=== PATIENT | female | born 1970 | race Two or more races ===

== ENCOUNTER 2016-12-07 07:25 | Day surgery (SDC) | payer MEDICAID ==
[2016-12-04 14:10] VITALS: BMI 25.2
[2016-12-07] VITALS (17 sets, daily range): BP systolic 105–118; BP diastolic 55–72; PULSE 56–90; RESP 14–19; Ht 152.4 cm; Wt 71.0 kg
[~2016-12-07] VITALS: Ht 152.4 cm; Wt 71.0 kg
[~2016-12-07 07:25] MED LIST: PREN1TAB49 PO
[2016-12-07 09:53] LABS: ADD SCAN DIFF NO
[2016-12-07] MEDS ORDERED: SOD CHLORIDE 0.9% 1,000 ML IV SCH (10:00)
[2016-12-07] MEDS ORDERED: CEFAZOLIN 2 GM/50 ML (PMX) 50 ML IVPB SCH (10:00)
[2016-12-07 10:08] LABS: BASOPHILS % 0.7 % (0.0-2.0); EOSINOPHILS # 0.2 10^3/ul (0.0-0.5); EOSINOPHILS % 5.7 % (0.0-7.0); HEMATOCRIT 33.7 % (37.0-47.0); HEMOGLOBIN 10.8 g/dl (12.0-16.0); LYMPHOCYTES # 1.3 10^3/ul (0.8-2.9); LYMPHOCYTES % 45.9 % (15.0-51.0); MEAN CORPUSCULAR HEMOGLOBIN 29.7 pg (29.0-33.0); MEAN CORPUSCULAR VOLUME 92.6 fl (82.0-101.0); MEAN PLATELET VOLUME 9.9 fl (7.4-10.4); MONOCYTE # 0.3 10^3/ul (0.3-0.9); NEUTROPHILS % 36.7 % (39.0-77.0); PLATELET COUNT 314 10^3/UL (140-415); RED BLOOD COUNT 3.64 10^6/ul (4.20-5.40); WHITE BLOOD COUNT 2.8 10^3/ul (4.8-10.8)
[2016-12-07 10:15] LABS: INR 1.02; PROTIME 13.4 Sec (12.2-14.2)
[2016-12-07 10:16] LABS: CREATININE 0.48 mg/dl (0.44-1.00); PARTIAL THROMBOPLASTIN TIME 31.5 Sec (25.0-35.0); POTASSIUM 3.6 mmol/L (3.5-5.1)
[2016-12-07 10:17] LABS: CALCIUM 8.9 mg/dl (8.4-10.2)
[2016-12-07] MEDS ORDERED: PROPOFOL 100 ML ONE (10:52)
[2016-12-07] MEDS ORDERED: LIDOCAINE 2% (SDV) 5 ML INJ ONE (10:54)
[2016-12-07] MEDS ORDERED: CEFAZOLIN 1 GM INJ ONE (11:12)
[2016-12-07] MEDS ORDERED: ONDANSETRON 4 MG INJ ONE (11:23)
[2016-12-07] MEDS ORDERED: DEXAMETHASONE 4 MG/ML 1 ML INJ ONE (11:23)
[2016-12-07] MEDS ORDERED: EPHEDrine SULFATE 50 MG/5 ML SYG IV PRN (11:30)
[2016-12-07] MEDS ORDERED: METOCLOPRAMIDE 10 MG INJ IV PRN (11:30)
[2016-12-07] MEDS ORDERED: HYDROmorphONE (0.2 MG/ML) 10ML SYG IV PRN ×2 (11:30)
[2016-12-07] MEDS ORDERED: hydrALAzine 20 MG INJ IV PRN (11:30)
[2016-12-07] MEDS ORDERED: MEPERIDINE 25 MG INJ IV PRN (11:30)
[2016-12-07] MEDS ORDERED: FENTAnyl 50 MCG/ML VIAL IV PRN ×3 (11:30)
[2016-12-07] MEDS ORDERED: LABETALOL HCL 20MG INJ IV PRN (11:30)
[2016-12-07] MEDS ORDERED: ONDANSETRON 4 MG INJ IV PRN ×2 (11:30→12:30)
[2016-12-07] MEDS ORDERED: DIPHENHYDRAMINE 50 MG INJ IV PRN (11:30)
[2016-12-07] MEDS ORDERED: D5W-0.45 NACL + KCL 20 MEQ 1,000 ML IV SCH (12:12)
[2016-12-07] MEDS ORDERED: ACETAMINOPHEN 1000MG/100ML IV 100 ML IVPB PRN (12:30)
[2016-12-07] MEDS ORDERED: morphine 2 MG INJ IV PRN (12:30)
[2016-12-07] MEDS: HYDROmorphONE (0.2 MG/ML) 10ML SYG IV PRN ×2 (12:51→12:59)
--- NOTE | 2016-12-07 14:49 | OPR ---
DATE OF OPERATION: 12/07/2016 PREOPERATIVE DIAGNOSIS: Locally advanced right breast cancer. POSTOPERATIVE DIAGNOSIS: Locally advanced right breast cancer. OPERATION PERFORMED: Right modified radical mastectomy. ANESTHESIA: General. ANESTHESIOLOGIST: Dr. Drew SURGEON: Bertram Lemon MD CRADLE SLIDE MAKER: Dr. Laurent INDICATIONS FOR PROCEDURE: The patient is an unfortunate 46-year-old female who was diagnosed with a locally advanced right breast cancer. She had a primary tumor of approximately 3 cm just under th e nipple areolar complex. She also had evidence of metastatic disease to the axilla. She underwent neoadjuvant chemotherapy with very good response. She was then counseled as to the need for right modified radical mastectomy as the previous tumor was involving the nipple. She consented and was s cheduled for surgery. DESCRIPTION OF PROCEDURE: The patient was brought to the operating theater, placed under general en dotracheal tube anesthesia. The right breast and axillary region was prepped and draped in the usua l sterile fashion. Planned elliptical incision including skin of the breast and the nipple areolar complex was demarcated with marking pen and carried out with 15 blade scalpel. Subcutaneous tissue was dissected with cautery, and Allis-Wasatch clamps were used to elevate the skin edges. Sequential flap formation took place using cautery, first superiorly to the clavicle, then medially to the ster nal border, inferiorly to the inframammary fold, and laterally to the latissimus dorsi muscle was id entified throughout its course. Mastectomy then took place from medial to lateral. At the border o f the pectoralis major muscle, the pectoralis minor muscle was identified. Clavipectoral fascia was incised. At this point, the breast was nearly from the axillary tissue. Therefore, the tail of the breast was transected. The breast was removed, oriented, and sent for permanent patholo gic analysis. Dr. Lemon then proceeded with axillary dissection with blunt dissection along the barber st wall. The long thoracic nerve root was identified and kept out of harm's way. More superiorly, the axillary vein and thoracodorsal neurovascular bundle were identified and kept out of harm's way. Node-bearing tissue between the long thoracic nerve and thoracodorsal nerve was meticulously harve sted using the LigaSure device and sent for permanent pathologic analysis. The wound was irrigated. Minimal bleeding was controlled with cautery. Two #10 [place] Rafiq-Allen drains were then broug ht through the right mid axillary line, one was cut to size and laid within the axilla, the other wa s laid over the pectoralis major muscle. Both drains were secured in place with 2-0 nylon suture in the standard fashion. The skin was then reapproximated with skin kezia. The patient tolerated p rocedure well. The estimated blood loss was 30 mL. There were no complications and the patient was transported in stable condition to the recovery room where a circumferential compression dressing w as applied. Dictated By: BERTRAM BECERRIL/ARGENIS Conf#: [id number] DID#: [id number]
--- NOTE | 2016-12-07 17:36 | HP ---
DATE OF ADMISSION: 12/07/2016 HISTORY OF PRESENT ILLNESS: The patient is an unfortunate 46-year-old female with invasive cancer o f the right breast. The patient is status post neoadjuvant chemotherapy. The patient was evaluated by Dr. Lemon in general surgery consultation and the patient was brought to the hospital and underw ent right modified radical mastectomy. Postoperatively, the patient experienced significant pain an d the patient is admitted for further evaluation and management. PAST MEDICAL HISTORY: Positive for arthritis. PAST SURGICAL HISTORY: Patient reports a surgery on her left leg, details are not available. The p atient is status post left chest Port-A-Cath placement for chemotherapy. SOCIAL HISTORY: Patient lives at home with her family. The patient denies any alcohol use. Denies any tobacco use, denies any illicit drug use. FAMILY HISTORY: Positive for breast cancer in patient's cousin at the age of 39. ALLERGIES: THE PATIENT IS ALLERGIC TO VITAMIN B12. MEDICATIONS: On admission, patient denies taking any home medications. REVIEW OF SYSTEMS: A 12-point review of systems is negative unless what mentioned in the HPI. PHYSICAL ASSESSMENT GENERAL: Well-developed, well-nourished female currently lethargic but easily arousable, awake, jarrett rt and oriented to name, situation and date. VITAL SIGNS: Temperature is 97.4, pulse is 74, blood pressure 115/62, respiratory rate 19, oxygen s aturation 97% on room air. HEENT: Head is atraumatic, normocephalic. Pupils equal, reactive to light and accommodation. Oral mucosa is pink and moist. NECK: Supple, no cervical lymphadenopathy, no thyromegaly. LUNGS: Clear bilaterally. No rhonchi, wheezes, rales noted. NEUROLOGIC: Patient is status post surgery with a dry, clean and intact dressing and right axillary MIRIAM drain x2. CARDIOVASCULAR: Normal S1, S2. No murmurs, gallops, clicks, rubs noted. ABDOMEN: Round, soft, nondistended, nontender. Bowel sounds present. No guarding, no rebound tend erness. EXTREMITIES: There is no edema, clubbing, cyanosis. Pulses equal bilaterally 2+. SKIN: There is no rash, petechiae noted. NEUROLOGICAL: The patient is awake, alert and oriented x3, no focal deficits noted. MUSCULOSKELETAL: Motor strength 5/5 in all extremities. LABORATORY DATA: On admission, CBC: White blood cells 2.8, hemoglobin 10.8, hematocrit 33.7, plate lets 314. Chemistry: Sodium is 140, potassium 3.6, chloride 107, carbon dioxide 24, anion gap 15, BUN is 17, creatinine 0.48, glucose 91, calcium 8.9. PT 13.4, INR 1.8, PTT 31.5. ASSESSMENT AND PLAN: 1. Poorly differentiated cancer of the right breast status post neoadjuvant chemotherapy. 2. Status post radical mastectomy of the right breast. 3. Arthritis by history. PLAN: We are going to admit patient to medical/surgical floor. Continue Tylenol, IV and morphine I V p.r.n. for pain, Zofran p.r.n. for nausea. Patient received intraoperative antibiotics. Continue IV fluids. Monitor electrolytes. We will continue incentive spirometer 1 hour when patient is morena ke. Continue sequential compression device for deep venous thrombosis prophylaxis. Further recomme ndations based on clinical course. Plan of care discussed with Dr. Ferrer. Dictated By: CECI DUTTA ASSISTANCE SPECIALIST for XAVIER FERRER MD SR/NTS Conf#: [id number] DID#: [id number]
[2016-12-07] MEDS: ACETAMINOPHEN 325 MG TAB PO PRN (23:17)
[2016-12-08] VITALS: BP 100/53; PULSE 79; RESP 16
[2016-12-08 00:08] VITALS: BP 100/53; RESP 16
[2016-12-08 04:00] VITALS: BP 97/54; PULSE 80; RESP 18
[2016-12-08] MEDS ORDERED: HYDROCODONE/APAP (5/325) TAB PO PRN (07:00)
[2016-12-08 08:04] VITALS: BP 105/57; RESP 20
[2016-12-08] MEDS: ACETAMINOPHEN 325 MG TAB PO PRN ×2 (08:07→16:22)
[2016-12-08 08:32] LABS: ADD SCAN DIFF NO
[2016-12-08 08:51] LABS: BASOPHILS % 0.2 % (0.0-2.0); EOSINOPHILS % 0.8 % (0.0-7.0); HEMATOCRIT 33.3 % (37.0-47.0); HEMOGLOBIN 10.3 g/dl (12.0-16.0); LYMPHOCYTES # 1.6 10^3/ul (0.8-2.9); LYMPHOCYTES % 32.4 % (15.0-51.0); MEAN CORPUSCULAR HEMOGLOBIN 28.9 pg (29.0-33.0); MEAN CORPUSCULAR HGB CONC 30.9 g/dl (32.0-37.0); MEAN CORPUSCULAR VOLUME 93.5 fl (82.0-101.0); MEAN PLATELET VOLUME 9.6 fl (7.4-10.4); MONOCYTE # 0.5 10^3/ul (0.3-0.9); MONOCYTES % 9.1 % (0.0-11.0); NEUTROPHIL # 2.8 10^3/ul (1.6-7.5); NEUTROPHILS % 57.3 % (39.0-77.0); PLATELET COUNT 300 10^3/UL (140-415); RED BLOOD COUNT 3.56 10^6/ul (4.20-5.40); RED CELL DISTRIBUTION WIDTH 16.8 % (11.5-14.5); WHITE BLOOD COUNT 4.9 10^3/ul (4.8-10.8)
[2016-12-08 09:08] LABS: CALCIUM 9.2 mg/dl (8.4-10.2); CREATININE 0.53 mg/dl (0.44-1.00); POTASSIUM 4.1 mmol/L (3.5-5.1)
[2016-12-08 14:13] VITALS: BP 92/55; PULSE 86; RESP 18
[2016-12-08] MEDS ORDERED: HYDR-3498 PO (15:32)
--- NOTE | 2016-12-08 18:25 | PN ---
DATE: SUBJECTIVE: Postop day #1 status post right modified radical mastectomy with axillary dissection. Complains of some middle back pain. OBJECTIVE: VITAL SIGNS: Temperature 98.2, heart rate 86 regular, respirations 18, blood pressure 92/55, satura tion 99% on room air. LABORATORY DATA: WBC 4900, hemoglobin 10.3, hematocrit 33.3. Differential 57% neutrophils. Electr olytes, BUN and creatinine, sodium, and potassium normal. Drainage from the Rafiq-Allen drain #1 and 2, each one, 40 mL per 24 hours, total 80 mL serosanguineous, slightly more bloody. PLAN: The patient can be discharged home with Rafiq-Allen drains. The nurse has taught the patie nt how to take care of the Rafiq-Allen drains and how to drain them and how to measure them. The patient is going to go home tonight in the care of her and will call the office of Dr. Lemon and make an appointment for followup. Dictated By: MADISON MEJIA/ARGENIS Conf#: [id number] DID#: [id number]
== END 2016-12-08 19:10 | disposition home or self-care (01) ==
LOC: SDS 07:25 → MS1 13:46 → SDS 12-08 19:10
PROVIDERS: ATTEND Surgery Surgical Oncology
DX: C50.911 Malignant neoplasm of unspecified site of right female breast (principal)
CPT/HCPCS: 19307; 80048; 84703; 85025; 85610; 85730; 88307; J0690; J1100; J1170; J2270; J2405; J3010; J3480; Z7512; Z7610

== ENCOUNTER 2017-10-22 10:33 | Inpatient (IN) | END 2017-10-27 14:27 | disposition home or self-care (01) | DRG 418 ==

== ENCOUNTER 2018-10-17 08:41 | Day surgery (SDC) | payer MEDICAID ==
[~2018-10-17] VITALS: Ht 160 cm; Wt 64.6 kg
[2018-10-17] VITALS (15 sets, daily range): BP systolic 95–117; BP diastolic 56–72; PULSE 58–84; RESP 10–18; Ht 160 cm; Wt 64.6 kg
[~2018-10-17 08:41] MED LIST changes: +CEFAZOLIN 2 GM/50 ML (PMX) 50 ML IVPB ONE; +DOCU-144 PO; +HYDR-4011 PO; -PREN1TAB49 PO; +SEVOFLURANE 15 MIN ONE; +SOD CHLORIDE 0.9% 1,000 ML IV ONE
--- NOTE | 2018-10-17 10:15 | PREAC ---
Date/Time of Note Date/Time of Note DATE: 10/17/18 TIME: 10:13 Anesthesia Eval and Record Evaluation Time Pre-Procedure Interview DATE: 10/17/18 TIME: 10:13 Age 48 Sex female NPO: 8 hrs Preoperative diagnosis Lt breast mass Planned procedure Lt breast Biopsy Past Medical History Past Medical History: None Surgery & Anesthesia Issues No known issue Meds Anticoagulation: No Beta Arturo within 24 hr: No Reason Beta Arturo not given: Pt. not on B-Arturo Active Scripts Hydrocodone/Acetaminophen ([place] 5-325 Tablet) 1 Each Tablet, 1 EACH PO Q6H for PAIN, #30 TAB Prov:GARZA,RHIANNA V. BRUSH WORKER 10/27/17 Docusate Sodium* (Colace*) 100 Mg Capsule, 100 MG PO DAILY, #30 CAP Prov:GARZA,RHIANNA V. BRUSH WORKER 10/27/17 Current Medications Sodium Chloride 1,000 ml @ 75 mls/hr [id number] ONCE IV ; Start 10/17/18 at 05:00; Stop 10/17/18 at 18:19 Meds reviewed: Yes Allergies Coded Allergies: cyanocobalamin (vitamin B12) (Verified Adverse Reaction, Unknown, UNKNOWN, 12/07/16) RASH ITCHY Allergies Reviewed: Yes Labs/Studies Labs Reviewed: Reviewed by anesthesiologist test: Negative Studies: ECG Pre-procedure Exam Last vitals Vital Signs Date Temp Pulse Resp B/P (MAP) Pulse Ox O2 O2 Flow FiO2 Time Delivery Rate 10/17/18 96.7 76 16 111/59 100 Room Air 10:00 (76) Airway: Adequate mouth opening, Adequate thyromental dist Mallampati: Mallampati II Teeth: Normal Lung: Normal Heart: Normal ASA Physical Status ASA physical status: 2 Emergency: None Planned Anesthetic General/MAC: LMA Planned Pain Management Parenteral pain med Pre-operative Attestations Prior to commencing anesthesia and surgery, the patient was re-evaluated, there was verification of: *The patient's identity *The results of appropriate recent lab work and preoperative vital signs *The above evaluation not changing prior to induction *Anesthetic plan, risk benefits, alternative and complications discussed with patient/family; questions answered; patient/family understands, accepts and wishes to proceed. MOLLY DANIELLE MD Oct 17, 2018 10:15
[2018-10-17] MEDS ORDERED: LIDOCAINE 1%/EPI (1:100,000) (MDV) 20 ML ONE (10:19)
[2018-10-17] MEDS ORDERED: TAMO10TA20 PO (10:30)
[2018-10-17] MEDS ORDERED: NERA40TA PO (10:31)
[2018-10-17] MEDS ORDERED: MIDAZOLAM 1 MG/ML 2 ML INJ ONE (10:43)
[2018-10-17] MEDS ORDERED: FENTAnyl 50 MCG/ML VIAL ONE (10:44)
[2018-10-17] MEDS ORDERED: PHENYLephrine (100 MCG/ML) 5ML SYG ONE (10:51)
[2018-10-17] MEDS ORDERED: PROPOFOL 20 ML ONE (11:17)
[2018-10-17] MEDS ORDERED: LIDOCAINE 2% (SDV) 5 ML INJ ONE (11:17)
[2018-10-17] MEDS ORDERED: CEFAZOLIN 1 GM INJ ONE (11:17)
[2018-10-17] MEDS ORDERED: ONDANSETRON 4 MG INJ ONE (11:18)
[2018-10-17] MEDS ORDERED: LIDOCAINE 1%/EPI (1:100,000) (MDV) 20 ML INJ ONE (11:22)
--- NOTE | 2018-10-17 11:35 | PAC ---
Date/Time of Note Date/Time of Note DATE: 10/17/18 TIME: 11:34 Post-Anesthesia Notes Post-Anesthesia Note Last documented vital signs Vital Signs Date Temp Pulse Resp B/P (MAP) Pulse Ox O2 O2 Flow FiO2 Time Delivery Rate 10/17/18 96.7 76 16 111/59 100 Room Air 10:00 (76) Activity: WNL Respiratory function: WNL Cardiovascular function: WNL Mental status: Baseline Pain reasonably controlled: Yes Hydration appropriate: Yes Nausea/Vomiting absent: Yes Comments BP:109/56, P:78, Spo2:100%, T:98, MOLLY DANIELLE MD Oct 17, 2018 11:35
--- NOTE | 2018-10-17 11:46 | SIPON ---
Date/Time of Note Date/Time of Note DATE: 10/17/18 TIME: 11:45 Operative Report Preoperative Diagnosis Diffuse skin rash and need for skin biopsy Postoperative Diagnosis Same Operation/Procedure Performed Skin biopsy right posterior thoracic region x2 Surgeon see signature line assistant auditor None Anesthesia: general Estimated blood loss: 0 - 10 ml's Transfusion Required none Specimen Right posterior thoracic skin lesions x2 Grafts/Implants none Complications none OVIDIO ROBERSON MD Oct 17, 2018 11:46
--- NOTE | 2018-10-17 11:57 | OPR ---
DATE OF OPERATION: 10/17/2018 PREOPERATIVE DIAGNOSIS: Diffuse skin lesions. POSTOPERATIVE DIAGNOSIS: Diffuse skin lesions. PROCEDURE PERFORMED: Punch biopsy of left posterior thoracic skin lesions x2. ANESTHESIA: General. ANESTHESIOLOGIST: Earl Castillo MD. SURGEON: Bertram Lemon MD. SCALES INSPECTOR: None. INDICATIONS FOR PROCEDURE: The patient is a 48-year-old female who I treated for breast cancer appro [facility] 2-1/2 years ago. She developed a skin rash predominantly over the truncal region and also o n her posterior buttocks. She was treated empirically with antifungal and also topical steroids. H owever, the skin rashes are persistent; hence, as she is now counseled as need for tissue diagnosis. She consented and was scheduled for surgery. DESCRIPTION OF PROCEDURE: The patient was brought to the operating theater, placed under general ane sthesia. She was then put in the lateral position with the right side up. The posterior thoracic re gion was prepped and draped in the usual sterile fashion. Punch biopsies were taken of a right super ior posterior thoracic lesion and also a right inferior posterior thoracic region. Both biopsy sites were then injected with 1% lidocaine local anesthetic and both skin wounds were reapproximated with 2-0 nylon suture in simple fashion. The patient tolerated procedure well. The estimated blood loss was 5 mL. There were no complications and the patient was transported in stable condition to the rec overy room. Dictated By: BERTRAM BECERRIL/ARGENIS Conf#: [id number] DID#: [id number]
[2018-10-17] MEDS ORDERED: ONDANSETRON 4 MG INJ IV PRN (12:00)
[2018-10-17] MEDS ORDERED: MEPERIDINE 25 MG INJ IV PRN (12:00)
[2018-10-17] MEDS ORDERED: FENTAnyl 50 MCG/ML VIAL IV PRN (12:00)
[2018-10-17] MEDS ORDERED: HYDROmorphONE 1 MG/5 ML IV SYRINGE IV PRN ×2 (12:00)
[2018-10-17] MEDS ORDERED: DIPHENHYDRAMINE 50 MG INJ IV PRN (12:00)
== END 2018-10-17 13:44 | disposition home or self-care (01) ==
LOC: SDS 08:41
PROVIDERS: ATTEND Surgery Surgical Oncology
DX: L73.8 Other specified follicular disorders (principal); R23.4 Changes in skin texture
CPT/HCPCS: 11104; 11105; 84703; 85610; 85730; 88305; J0690; J2250; J2405; J3010; Z7512; Z7610; J2370

== ENCOUNTER 2018-11-05 19:38 | Emergency (ER) | payer MEDICAID ==
[~2018-11-05] VITALS: Ht 162.6 cm; Wt 64.0 kg
[~2018-11-05 19:38] MED LIST changes: -CEFAZOLIN 2 GM/50 ML (PMX) 50 ML IVPB ONE; -DOCU-144 PO; -HYDR-4011 PO; +NERA40TA PO; -SEVOFLURANE 15 MIN ONE; -SOD CHLORIDE 0.9% 1,000 ML IV ONE; +TAMO10TA20 PO
[2018-11-05 19:54] VITALS: Ht 162.6 cm; Wt 64.0 kg
[2018-11-05] MEDS ORDERED: KETOROLAC 15 MG INJ IV STA (22:16)
[2018-11-05] MEDS ORDERED: SOD CHLORIDE 0.9% 500 ML IV STA (22:16)
[2018-11-05] MEDS ORDERED: ONDANSETRON 4 MG INJ IV STA (22:16)
--- NOTE | 2018-11-05 23:22 | ERD ---
ER Documentation Chief Complaint Chief Complaint right abdominal pain x 2 weeks HPI This is a 48-year-old female with a past medical history of breast cancer status post right mastectomy and left chest port previously on intravenous chemotherapy but now on an oral regimen, cholecystitis status post cholecystectomy who is now presenting for 2 weeks of waxing and waning right sided mild to moderate sharp cramping abdominal pain with episodes of nausea but no vomiting. The patient has not had any constipation or diarrhea. She has not had any black or bloody or tarry stools. The patient has not had any dysuria or hematuria or urgency or frequency. The patient was evaluated by her primary doctor and reportedly had a right upper quadrant ultrasound completed. She has not heard about the results of the study. The patient presents this evening because she had an exacerbated episode of pain that has since improved. The patient denies feeling sick recently. The patient denies fever or chills. The patient has had no headache or vision changes. The patient does not endorse neck or back pain. The patient denies lightheadedness or dizziness. The patient has had no chest pain or trouble breathing. The patient has had no focal deficits. The patient has had no weakness or numbness or tingling to the face or extremities. ROS All systems reviewed and are negative except as per history of present illness. Medications Home Meds Reported Medications Neratinib Maleate (Nerlynx) 40 Mg Tablet, 40 MG PO DAILY, TAB STARTED RX ON 08/25 AND END RX ON 09/23 10/17/18 Tamoxifen Citrate* (Tamoxifen Citrate*) 10 Mg Tab, 10 MG PO DAILY, TAB STARTED RX ON 07/14/17 10/17/18 Allergies Allergies: Coded Allergies: cyanocobalamin (vitamin B12) (Verified Allergy, Unknown, RASH & HIVES, 10/17/18) PER PT PMhx/Soc History of Surgery: Yes (RT BREAST MASTECTOMY ,CHOLECYSTECTOMY,LT PORTACATH) Anesthesia Reaction: No Hx Neurological Disorder: No Hx Respiratory Disorders: No Hx Cardiac Disorders: No Hx Psychiatric Problems: No Hx Miscellaneous Medical Probl: Yes (Breast cancer) Hx Alcohol Use: No Hx Substance Use: No Hx Tobacco Use: No Smoking Status: Never smoker FmHx Family History: No diabetes Physical Exam Vitals Vital Signs Date Temp Pulse Resp B/P (MAP) Pulse Ox O2 O2 Flow FiO2 Time Delivery Rate 11/06/18 65 12 106/6 (39) 99 Room Air 00:39 11/05/18 98.7 73 19 100/62 99 Room Air 23:38 (75) 11/05/18 76 16 112/82 100 Room Air 22:20 (92) 11/05/18 98.7 68 18 112/68 100 19:54 (83) Physical Exam Const: No apparent distress, well-developed, well-nourished Head: Normocephalic, Atraumatic Eyes: Normal Conjunctiva. Extraocular movements intact. Pupils equal, round and reactive to light ENT: Normal External Ears, Nose and Mouth. Neck: Full range of motion. No meningismus. Resp: Clear to auscultation bilaterally, No wheezes, rales or rhonchi Cardio: Regular rate and rhythm. No murmurs, rubs or gallops Abd: Soft, non distended. Mild right upper quadrant tenderness. Healed cholecystectomy scars. Normal bowel sounds Skin: No petechiae or rashes Back: No midline tenderness. No CVA tenderness Ext: No cyanosis, or edema Neur: Awake and alert, oriented 4. Cranial nerves intact. No facial droop. Normal strength, sensation and coordination. Psych: Normal Mood and Affect Result Diagram: 11/05/18221911/05/182219 Results 24 hrs Laboratory Tests Test 11/05/18 22:20 11/05/18 22:39 White Blood Count 4.3 10^3/ul Red Blood Count 4.07 10^6/ul Hemoglobin 12.0 g/dl Hematocrit 36.6 % Mean Corpuscular Volume 89.9 fl Mean Corpuscular Hemoglobin 29.5 pg Mean Corpuscular Hemoglobin Concent 32.8 g/dl Red Cell Distribution Width 13.1 % Platelet Count 228 10^3/UL Mean Platelet Volume 10.1 fl Immature Granulocytes % 0.000 % Neutrophils % 60.6 % Lymphocytes % 30.8 % Monocytes % 7.5 % Eosinophils % 0.9 % Basophils % 0.2 % Nucleated Red Blood Cells % 0.0 /100WBC Immature Granulocytes # 0.000 10^3/ul Neutrophils # 2.6 10^3/ul Lymphocytes # 1.3 10^3/ul Monocytes # 0.3 10^3/ul Eosinophils # 0.0 10^3/ul Basophils # 0.0 10^3/ul Nucleated Red Blood Cells # 0.0 10^3/ul Urine Color YELLOW Urine Clarity CLEAR Urine pH 5.0 Urine Specific [place] 1.011 Urine Ketones NEGATIVE mg/dL Urine Nitrite NEGATIVE mg/dL Urine Bilirubin NEGATIVE mg/dL Urine Urobilinogen NEGATIVE mg/dL Urine Leukocyte Esterase TRACE Sofie/ul Urine Microscopic RBC 1 /HPF Urine Microscopic WBC 4 /HPF Urine Squamous Epithelial Cells FEW /HPF Urine Mucus FEW /HPF Urine Hemoglobin 1+ mg/dL Urine Glucose NEGATIVE mg/dL Urine Total Protein NEGATIVE mg/dl Sodium Level 141 mmol/L Potassium Level 4.3 mmol/L Chloride Level 108 mmol/L Carbon Dioxide Level 24 mmol/L Anion Gap 9 Blood Urea Nitrogen 16 mg/dl Creatinine 0.61 mg/dl Est Glomerular Filtrat Rate mL/min > 60 mL/min Glucose Level 92 mg/dl Calcium Level 9.0 mg/dl Total Bilirubin 0.3 mg/dl Direct Bilirubin 0.00 mg/dl Indirect Bilirubin 0.3 mg/dl Aspartate Amino Transf (AST/SGOT) 39 IU/L Alanine Aminotransferase (ALT/SGPT) 58 IU/L Alkaline Phosphatase 80 IU/L Total Protein 7.2 g/dl Albumin 4.0 g/dl Globulin 3.20 g/dl Albumin/Globulin Ratio 1.25 Lipase 235 U/L POC Beta HCG, Qualitative NEGATIVE Current Medications Medications Dose Sig/Marah Start Time Status Last (Trade) Ordered Route PRN Stop Time Admin Dose Reason Admin Sodium 500 ml @ Q1H STAT 11/05/18 DC 11/05/18 Chloride 500 mls/hr IV 22:16 11/05/18 22:48 23:15 Ondansetron 4 mg ONCE STAT 11/05/18 DC 11/05/18 HCl (Zofran IV 22:16 11/05/18 22:49 Inj) 22:17 Ketorolac 15 mg ONCE STAT 11/05/18 DC 11/05/18 Tromethamine IV 22:16 11/05/18 22:49 (Toradol) 22:17 Procedures/MDM MDM The patient's presentation warrants further investigation. Previous medical records, if available, were reviewed. LABS The patient's laboratory testing was obtained and reviewed. No emergent t reatment was required unless described below. CBC: No E/o systemic infection or severe anemia or thrombocytopenia Chemistry: No E/o severe acidosis or alkalosis or renal failure or liver disease or diabetic ketoacidosis Lipase: No E/o pancreatitis Urine: No E/o acute infection or hematuria HCG: Negative IMAGING Imaging and Radiology interpretation reviewed. CT abdomen pelvis FINDINGS: There is scattered air-fluid levels in nondilated small bowel. There is fluid and stool throughout the colon. The appendix is not distinctly visualized. There is no secondary evidence for appendicitis. There is no evidence for diverticulitis. There is no free fluid. The liver is overall normal in size. No intrahepatic lesions are identified. The gallbladder has been removed.. There is no abnormal collection within the gallbladder fossa. There is no definite biliary ductal dilation. Pancreas is normal in appearance. The spleen is unremarkable. There are no adrenal masses. The aorta is normal caliber. Kidneys are normal in appearance without hydronephrosis, mass or calculus. There is no perinephric collection. Ureters are of normal caliber and without evidence for an obstructing calculus The urinary bladder is normal in appearance. The uterus is grossly unremarkable. The ovaries are not well characterized. Limited evaluation of the lung bases is unremarkable. The bones are unremarkable. IMPRESSION: 1. Status post interval cholecystectomy. No abnormal collection in the gallbladder fossa. 2. Scattered air-fluid levels in small large bowel, possibly a mild ileus versus enterocolitis. No definite bowel obstruction. 3. No free fluid or free intraperitoneal gas. 4. Appendix not distinctly visualized. No secondary evidence for appendicitis. 5. No evidence for diverticulitis. 6. No obstructive uropathy. 7. Grossly unremarkable uterus. Ovaries are not well characterized. Electronically viewed and signed by Basil Baker MD, MD on 11/06/2018 01:20 TREATMENT/DISPOSITION The patient presents with right-sided abdominal pain. The patient had a previous cholecystectomy. I do not suspect biliary colic. The CT did not reveal any emergent hepatic pathology. It did reveal the possibility of a mild ileus versus enterocolitis. I do have higher suspicion for enteric colitis versus gastroenteritis. The patient's vitals are unremarkable. I do not believe the patient is septic. I do not believe the patient requires antibiotics at this time. I do not see evidence of metastatic disease. I do not see evidence of appendicitis. The patient does not have any evidence of peritonitis. The patient does not have clinical symptoms concerning for mesenteric ischemia or ischemic colitis. The patient does not have any epigastric pain. I have low suspicion for gastritis, PUD or GERD. The patient does not have left upper quadrant tenderness. The lipase was normal. I have low suspicion for pancreatitis. The patient's urinalysis is reassuring. The patient does not have suprapubic tenderness. I have decreased suspicion for cystitis. The patient does not have any left lower quadrant tenderness, and I have low suspicion for diverticulosis or diverticulitis. The patient does not have any flank tenderness. The patient does not have gross hematuria. I have decreased suspicion for nephrolithiasis or renal colic. The patient does not have any palpable pulsatile mass or severe abdominal pain radiating to the back. I have low suspicion for aortic aneurysm, dissection or rupture. The patient was treated with IV fluids, Zofran and Toradol with some improvement. DISCHARGE Upon reevaluation of the patient, symptoms have improved. No emergent diagnoses were identified. At this time, I feel that the patient stable for discharge. The patient was instructed to follow-up with a primary care physician in 1-3 days. The patient will be given strict precautions with which to return to the emergency department. Prescriptions: Zofran, ibuprofen Disclaimer: Inadvertent spelling and grammatical errors are likely due to EHR/dictation software use and do not reflect on the overall quality of patient care. Note that the electronic time recorded on this note does not necessarily reflect the actual time of the patient encounter. Departure Diagnosis: Primary Impression: Abdominal pain Abdominal location: right upper quadrant Qualified Codes: R10.11 - Right upper quadrant pain Additional Impression: Nausea Condition: Stable Patient Instructions: Abdominal Pain, Gastroenteritis, Viral (6Y-Adult), Nausea Additional Instructions: Thank you for for coming to [facility] for your care today. Please ask your nurse or provider if you have questions about your care today and do not leave until all your questions have been answered. Please use any medications given as directed and follow-up with your doctor (or the doctor you were referred to) in the next 1-3 days. If you do not have a primary care doctor you may follow up at the [facility] or [facility] (listed below). You may also use motrin and tylenol as needed for fever and/or pain unless instructed otherwise by your provider or nurse. Indications for more urgent follow-up have been discussed, but you may return to the Emergency Department at ANY time for any worrisome or worsening symptoms. If you have abdominal pain, please know that no test or exam you received is perfect and you should follow up within 8 hours for continued pain. If you had any imaging studies today, such as an X-Ray or CT Scan, these studies will be reviewed later by a radiologist. You will be called if there are important findings that were not identified today, so make sure the contact information you provided at registration is correct. If you received any narcotic pain control medicine today, such as Vicodin, Morphine or Dilaudid, your coordination and judgment may be affected for a number of hours. Please do not drive or operate heavy machinery, and you may want someone to assist you at home. If you were given a prescription for narcotic medication, be aware that it is very addictive- use sparingly and only if necessary. PLEASE SEEK FURTHER EVALUATION AND MANAGEMENT AT YOUR DOCTORS OFFICE WITHIN THE NEXT 1-3 DAYS. IT IS YOUR RESPONSIBILITY TO MAKE AN APPOINTMENT FOR FOLOW-UP CARE. IF YOU HAVE A PRIMARY DOCTOR, PLEASE CALL THEIR OFFICE TO SCHEDULE AN APPOINTMENT FOR FOLLOW UP. IF YOU DO NOT HAVE A PRIMARY DOCTOR YOU CAN CALL OUR PHYSICIAN REFERRAL HOTLINE AT IF YOU CAN NOT AFFORD TO SEE A PHYSICIAN YOU CAN CHOSE FROM THE FOLLOWING [facility] CLINICS: [facility] [address]. [facility] [address] [facility] [facility] [address] [facility]. [facility] [address] [facility]. [facility] [address] [facility]. [facility]. [address] ITALIA BURNS MD Nov 05, 2018 23:22
[2018-11-06] MEDS ORDERED: ONDA8TAB9 PO (01:29)
[2018-11-06] MEDS ORDERED: IBUP-1542 PO (01:29)
[2018-11-06 02:07] VITALS: BP 103/70; PULSE 79; RESP 17
== END 2018-11-06 02:07 | disposition home or self-care (01) ==
LOC: E/R 19:38
DX: R10.11 Right upper quadrant pain (principal); R11.0 Nausea; Z85.3 Personal history of malignant neoplasm of breast
CPT/HCPCS: 36415; 74176; 80053; 81001; 81025; 83690; 85025; 96374; 96375; J1885; J2405; J7040; Z7502; Z7610